=== PATIENT | male | born 1980 | race Hispanic/Latino ===

== ENCOUNTER 2016-12-29 23:53 | Emergency (ER) | payer OTHER ==
[~2016-12-29] VITALS: Ht 167.6 cm; Wt 90.9 kg
[2016-12-30 00:58] LABS: EOSINOPHIL COUNT 0.1 K/uL (0-0.3); HEMATOCRIT 40.9 % (38.0-50.0); IMMATURE GRANULOCYTE (%) 0.2 % (0.0-0.7); INSTRUMENT ABS NEUTROPHIL CT 4.1 K/uL; LYMPHOCYTE COUNT 3.3 K/uL (1.0-2.8); MCH 29.3 PG (29.0-34.0); MCV 88.7 FL (86-99); MEAN PLAT.VOLUME 10.3 uM^3 (9.0-12.4); MONOCYTE (%) 8.5 % (3-12); MONOCYTE COUNT 0.7 K/uL (0-0.8); NEUTROPHIL (%) 49.8 % (45-76); NEUTROPHIL COUNT 4.1 K/uL (1.8-6.4); PLATELET COUNT 295 K/uL (156-360); RBC DIS.WIDTH-CV 12.3 % (11.8-14.6); RBC DIS.WIDTH-SD 39.9 % (39-53); RED BLOOD COUNT 4.61 M/uL (4.00-5.50)
[2016-12-30 00:59] LABS: WHITE BLOOD COUNT 8.2 K/uL (4.1-10.2)
[2016-12-30 01:07] LABS: CHLORIDE 104 mEq/L (99-109); POTASSIUM 3.7 mEq/L (3.7-5.4); SODIUM 139 mEq/L (136-147)
[2016-12-30 01:09] LABS: D-DIMER ELISA < 0.15 mg/L FEU (< 0.57); GLUCOSE 89 mg/dL (70-99)
[2016-12-30 01:10] LABS: ANION GAP 11 MEQ/L (2-14)
[2016-12-30 01:13] LABS: GFR ESTIMATE (CALCULATED) > 59 mL/min/
[2016-12-30 01:14] LABS: UREA NITROGEN (BUN) 29 mg/dL (9-23)
[2016-12-30 01:20] LABS: TROP-I INTERPRETATION NEGATIVE; TROPONIN-I < 0.01 ng/mL (0.0-0.30)
[2016-12-30 03:05] LABS: TROP-I INTERPRETATION NEGATIVE; TROPONIN-I < 0.01 ng/mL (0.0-0.30)
[2016-12-30] MEDS ORDERED: XANAX0.25 MG PO (03:46)
[2016-12-30 03:49] VITALS: BP 133/78
== END 2016-12-30 04:07 | disposition home or self-care (01) ==
LOC: EME 23:53
PROVIDERS: Emergency Medicine
DX: R07.9 Chest pain, unspecified (principal); F41.9 Anxiety disorder, unspecified
CPT/HCPCS: 71020; 80048; 84484; 85025; 85379; 93005; 99281; 99284